=== PATIENT | female | born 1995 | race American Indian/Alaskan Native ===

== ENCOUNTER 2021-04-06 08:00 | Outpatient (CLI) | payer OTHER | END 2021-04-06 08:30 | disposition home or self-care (01) | LOC: PPH VACUNA 08:00 | DX: Z23 Encounter for immunization (principal) ==

== ENCOUNTER 2021-04-27 08:00 | Outpatient (CLI) | payer OTHER | END 2021-04-27 08:30 | disposition home or self-care (01) | LOC: PPH VACUNA 08:00 | PROVIDERS: ATTEND Emergency Medicine Pediatric Emergency Medicine | DX: Z23 Encounter for immunization (principal) ==

== ENCOUNTER → 2022-12-27 | Emergency (ER) | payer OTHER ==
[~2022-12-27] VITALS: Ht 170.2 cm; Wt 88.5 kg
== END | disposition home or self-care (01) ==
LOC: ER 20:39
DX: O26.851 Spotting complicating pregnancy, first trimester (principal); Z3A.01 Less than 8 weeks gestation of pregnancy

== ENCOUNTER 2023-02-16 10:01 | Emergency (ER) | payer OTHER ==
[~2023-02-16] VITALS: Ht 170.2 cm; Wt 65.3 kg
== END 2023-02-16 11:11 | disposition home or self-care (01) ==
LOC: ER 10:01
DX: O26.891 Other specified pregnancy related conditions, first trimester (principal); Z3A.13 13 weeks gestation of pregnancy; L02.522 Furuncle left hand

== ENCOUNTER 2023-02-25 06:47 | Emergency (ER) | payer OTHER ==
[~2023-02-25] VITALS: Ht 162.6 cm; Wt 65.3 kg
== END 2023-02-25 16:55 | disposition home or self-care (01) ==
LOC: ER 06:47
PROVIDERS: Emergency Medicine
DX: O23.32 Infections of other parts of urinary tract in pregnancy, second trimester (principal); N39.0 Urinary tract infection, site not specified; Z3A.15 15 weeks gestation of pregnancy

== ENCOUNTER 2023-08-16 11:02 | Outpatient (CLI) | payer OTHER | END 2023-08-16 11:45 | disposition home or self-care (01) | LOC: NST 11:02 | PROVIDERS: ATTEND Obstetrics & Gynecology Maternal & Fetal Medicine | DX: Z34.83 Encounter for supervision of other normal pregnancy, third trimester (principal) ==

== ENCOUNTER 2023-08-24 05:44 | Inpatient (IN) | payer OTHER ==
[~2023-08-24] VITALS: Ht 170.2 cm; Wt 81.6 kg
[2023-08-24 06:59] LABS: HEMATOCRIT 28.9 % (36.0-45.00); MEAN CELL VOLUME 73.3 fL (80.00-100.00); MEAN CORPUSCULAR HEMOGLOBIN 22.5 pg (27.00-32.0); MEAN CORPUSCULAR HGB CONC 30.9 g/dl (32.0-36.0); PLATELET COUNT 173 K/uL (150-450); RED BLOOD COUNT 3.94 M/uL (4.00-6.00)
[2023-08-24 07:00] LABS: HEMOGLOBIN 8.9 g/dL (12.0-15.00)
[2023-08-24 07:16] LABS: INR < 0.93; PARTIAL THROMBOPLASTIN TIME 27.3 SECONDS (22.0-34.0); PROTHROMBIN TIME 9.8 SECONDS (9.0-11.5)
[2023-08-24 07:27] LABS: BILIRUBIN TOTAL 0.38 mg/dL (0.3-1.2); CALCIUM 8.3 mg/dL (8.5-10.1); CREATININE SERUM 0.65 mg/dL (0.55-1.02); GFR 107.76; GLOBULINA 4.4 G/DL (2.4-3.5); POTASSIUM 3.71 mEq/L (3.5-5.1); TOTAL PROTEIN 7.4 gm/dL (6.4-8.2)
[2023-08-24] MEDS ORDERED: PRENATAL TABLE1 EAC4 PO (07:27)
[2023-08-24] MEDS ORDERED: INTEGRA F CAPS1 EACH PO (07:28)
[2023-08-24 07:58] LABS: RED CELL DISTRIBUTION WIDTH 28.1 % (11.5-14.5)
[2023-08-24 20:46] LABS: HEMOGLOBIN 9.2 g/dL (12.0-15.00); MEAN CELL VOLUME 73.5 fL (80.00-100.00); MEAN CORPUSCULAR HEMOGLOBIN 22.5 pg (27.00-32.0); MEAN CORPUSCULAR HGB CONC 30.7 g/dl (32.0-36.0); PLATELET COUNT 170 K/uL (150-450); RED BLOOD COUNT 4.08 M/uL (4.00-6.00)
[2023-08-25 06:39] LABS: HEMATOCRIT 26.1 % (36.0-45.00); MEAN CELL VOLUME 71.7 fL (80.00-100.00); MEAN CORPUSCULAR HGB CONC 31.1 g/dl (32.0-36.0); PLATELET COUNT 173 K/uL (150-450); RED BLOOD COUNT 3.64 M/uL (4.00-6.00)
[2023-08-25 06:41] LABS: MEAN CORPUSCULAR HEMOGLOBIN 22.2 pg (27.00-32.0)
[2023-08-25 06:42] LABS: HEMOGLOBIN 8.1 g/dL (12.0-15.00); RED CELL DISTRIBUTION WIDTH 27.9 % (11.5-14.5)
== END 2023-08-26 13:35 | disposition home or self-care (01) | DRG 807 ==
LOC: OB/GYN 05:44 → LDR 05:44 → OB/GYN 12:41
PROVIDERS: Obstetrics & Gynecology Gynecology; ADMIT Obstetrics & Gynecology; ATTEND Obstetrics & Gynecology
PROC: 10E0XZZ Delivery of Products of Conception, External Approach (ICD-10-PCS; principal; 2023-08-24)
PROC: 0KQM0ZZ Repair Perineum Muscle, Open Approach (ICD-10-PCS; 2023-08-24)
PROC: 0UQMXZZ Repair Vulva, External Approach (ICD-10-PCS; 2023-08-24)
PROC: 4A1HXCZ Monitoring of Products of Conception, Cardiac Rate, External Approach (ICD-10-PCS; 2023-08-24)
DX: O70.1 Second degree perineal laceration during delivery (principal); Z37.0 Single live birth; O70.0 First degree perineal laceration during delivery; Z3A.40 40 weeks gestation of pregnancy; Z20.822 Contact with and (suspected) exposure to COVID-19

== ENCOUNTER 2025-05-20 03:46 | Emergency (ER) | payer OTHER ==
[~2025-05-20] VITALS: Ht 170.2 cm; Wt 59.0 kg
[~2025-05-20 03:46] MED LIST: INTEGRA F CAPS1 EACH PO; PRENATAL TABLE1 EAC4 PO
[2025-05-20 06:08] LABS: BASO % 0.3 % (0.1-1.2); EOS # 0.04 (0.04-0.54); EOS % 0.5 % (0.7-7.0); LYMPH # 1.42 (1.18-3.74); LYMPH % 18.1 % (19.3-53.1); MEAN PLATELET VOLUME 11.10 fl (9.4-12.4); MONO # 0.73 (0.24-0.82); MONO % 9.3 % (4.7-12.5); NEUT # 5.60 (1.56-6.13); NEUT % 71.5 % (34.0-71.1); RED CELL DISTRIBUTION WIDTH 20.4 % (11.6-14.4)
[2025-05-20 06:22] LABS: URINE APPEARANCE Cloudy; URINE BILIRRUBIN Negative (NEGATIVE); URINE BLOOD Large; URINE COLOR Yellow; URINE GLUCOSE Negative (NEGATIVE); URINE KETONE Negative (NEGATIVE); URINE LEUKOCYTE Small; URINE NITRATE Negative; URINE PROTEIN 30 (NEGATIVE); URINE UROBILINOGEN 0.2 E.U./dl
[2025-05-20 06:28] LABS: URINE BACTERIA 557.9 uL (0.0-1933); URINE EPITHELIAL CELLS 16.6 uL (0.0-38.8); URINE RBC 5078.1 uL (0.0-20.8); URINE WBC 257.8 uL (0.0-23.2)
[2025-05-20 06:31] LABS: URINE CAST 0.00 uL (0.0-1.40)
[2025-05-20 06:39] LABS: ALT/SGPT 16.0 U/L (12-78); AST/SGOT 12.0 U/L (15-37); BILIRUBIN TOTAL 0.3 mg/dL (0.3-1.2); BUN CREA RATIO 16.0 (7.0-25.0); CREATININE SERUM 0.63 mg/dL (0.55-1.02); GFR 110.22; GLOBULINA 3.8 G/DL (2.4-3.5); GLUCOSE FASTING 81.0 mg/dL (65-100); HCG QUANTITATIVE 182.0 mUI/mL (1-3); OSMOLALITY SERUM 279.0 MOSM/KG (275-295)
[2025-05-20] MEDS ORDERED: CEFTRIAXONE SODIUM 2,000 MG VIAL IV ONE (07:00)
[2025-05-20] MEDS ORDERED: CEFTRIAXONE SODIUM 2,000 MG VIAL ONE (07:14)
== END 2025-05-20 10:17 | disposition home or self-care (01) ==
LOC: ER 03:47
PROVIDERS: Preventive Medicine Public Health & General Preventive Medicine
DX: O20.8 Other hemorrhage in early pregnancy (principal); Z3A.01 Less than 8 weeks gestation of pregnancy